=== PATIENT | female | born 1935 | race Asian ===

== ENCOUNTER 2018-09-22 20:55 | Inpatient (IN) | payer MEDICARE, OTHER ==
[~2018-09-22] VITALS: Ht 147.3 cm; Wt 59.7 kg
[~2018-09-22 20:55] MED LIST: ASPI81TA87 PO; BP MED; CIPR-279 PO; [UNRECOGNIZED DRUG - REMARK]
[2018-09-22] MEDS ORDERED: AMLO-511 PO (21:08)
[2018-09-22 22:47] LABS: BASOPHILS % (AUTO) 1.5 % (0.0-2.0); EOSINOPHILS % (AUTO) 7.5 % (1.0-6.0); HEMATOCRIT 34.4 % (36-46); HEMOGLOBIN 11.1 g/dL (12.0-16.0); LYMPHOCYTES # (AUTO) 1.5 K/uL (1.0-4.8); LYMPHOCYTES % (AUTO) 25.2 % (22.0-44.0); MEAN CORPUSCULAR HEMOGLOBIN 23.9 pg (26.0-34.0); MEAN CORPUSCULAR HGB CONC 32.4 G/dL (31.0-37.0); MEAN CORPUSCULAR VOLUME 74 fL (80-100); MONOCYTES % (AUTO) 16.5 % (2.0-9.0); NEUTROPHILS # (AUTO) 2.9 K/uL (1.8-7.7); NEUTROPHILS % (AUTO) 49.3 % (40.0-70.0); PLATELET COUNT (AUTO) 168 K/uL (150-450); RED BLOOD CELL COUNT(AUTO) 4.66 MIL/uL (4.00-5.20); RED CELL DISTRIBUTION WIDTH 15.9 % (11.5-14.5)
[2018-09-22 22:57] LABS: ANION GAP 4 mmol/L (8-16); CARBON DIOXIDE 29 mmol/L (22-29); CHLORIDE 106 mmol/L (98-107); CREATININE 0.72 mg/dL (0.60-1.30); GLUCOSE,RANDOM 116 mg/dL (70-110); POTASSIUM 3.5 mmol/L (3.5-5.1); SODIUM SERUM 139 mmol/L (136-145); UREA NITROGEN, BLOOD 10 mg/dL (7-18)
[2018-09-22 23:00] LABS: INR 1.1 (0.9-1.1); PROTHROMBIN TIME 11.6 SEC (9.4-11.6)
[2018-09-22 23:01] LABS: GLOMERULAR FILTR. RATE CALC > 60 mL/min (>60)
[2018-09-22 23:02] LABS: ALANINE AMINOTRANSFERASE 35 U/L (12-78); ALBUMIN 2.5 g/dL (3.4-5.0); ALKALINE PHOSPHATASE 121 U/L (46-116); ASPARTATE AMINOTRANSFERASE 51 U/L (15-37); TOTAL PROTEIN, SERUM 7.4 g/dL (6.4-8.2)
[2018-09-22] MEDS ORDERED: HYDROCODONE/ACETAMINOPHEN 5-325 MG TABLET PO PRN (23:45)
[2018-09-22] MEDS ORDERED: MORPHINE SULFATE 4 MG/ML SYRINGE IVP PRN (23:45)
[2018-09-22] MEDS ORDERED: SODIUM CHLORIDE 0.9% 1,000 ML IV ONE (23:45)
[2018-09-22] MEDS ORDERED: ACETAMINOPHEN 325 MG TABLET PO PRN (23:45)
[2018-09-22] MEDS ORDERED: MAGNESIUM HYDROXIDE SUSPENSION 30 ML UDCUP PO PRN (23:45)
[2018-09-22] MEDS ORDERED: ONDANSETRON HCL 4 MG/2 ML VIAL IVP PRN (23:45)
[2018-09-22] MEDS ORDERED: ZOLPIDEM TARTRATE 5 MG TABLET PO PRN (23:45)
[2018-09-22] MEDS ORDERED: BISACODYL 10 MG RECTAL RECTAL SUPPOSITORY PR PRN (23:45)
[2018-09-22] MEDS ORDERED: IPRATROPIUM BROMIDE 0.5 MG/2.5 ML NEB SOLUTION NEB PRN (23:45)
[2018-09-22] MEDS ORDERED: ALBUTEROL SULFATE 2.5 MG/0.5 ML NEB SOLUTION NEB PRN (23:45)
[2018-09-23 00:16] VITALS: BP 141/57
[2018-09-23 04:00] VITALS: BP 138/64
[2018-09-23 07:25] VITALS: BP 126/67
[2018-09-23] MEDS: HEPARIN SODIUM,PORCINE 5,000 UNITS/ML VIAL SQ SCH ×2 (08:00)
[2018-09-23] MEDS: DOCUSATE SODIUM 100 MG CAPSULE PO SCH ×2 (08:36→20:43)
[2018-09-23] MEDS: AmLODIPine BESYLATE 5 MG TABLET PO SCH (08:36)
[2018-09-23] MEDS: PANTOPRAZOLE SODIUM 40 MG/VIAL IVP SCH (08:36)
[2018-09-23] MEDS ORDERED: BUPIVACAINE HCL/PF 0.5% 10 ML VIAL ONE ×2 (09:55→09:56)
[2018-09-23] MEDS ORDERED: RINGERS SOLUTION,LACTATED 1,000 ML IV ONE ×3 (09:56→11:30)
[2018-09-23] MEDS ORDERED: MUPIROCIN CALCIUM 2% 22 GM OINTMENT ONE (09:56)
[2018-09-23] MEDS ORDERED: GUM MASTIC/STORAX/MSAL/ALCOHOL LIQUID 0.67 ML VIAL TP ONE (09:56)
[2018-09-23] MEDS ORDERED: ACETAMINOPHEN 1000 MG/ISO-OSM 100 ML IV ONE ×2 (11:47→12:00)
[2018-09-23] MEDS ORDERED: HYDROmorphone 2 MG/ML SYRINGE IVP PRN (12:15)
[2018-09-23] MEDS ORDERED: MEPERIDINE-PF 25 MG/ML VIAL IVP PRN (12:15)
[2018-09-23] MEDS ORDERED: MORPHINE SULFATE 2 MG/ML SYRINGE IVP PRN (12:15)
[2018-09-23] MEDS ORDERED: FentaNYL CITRATE-PF 100 MCG/2 ML VIAL IVP PRN (12:15)
[2018-09-23] MEDS ORDERED: BUPIVACAINE LIPOSOME/PF 1.3%-13.3MG/ML SUSPENSION 10 ML VIAL INJ ONE (12:15)
[2018-09-23] MEDS ORDERED: VANCOMYCIN HCL 1 GM/VIAL ONE (12:47)
[2018-09-23 14:36] VITALS: BP 128/63
[2018-09-23] MEDS ORDERED: SODIUM CHLORIDE 0.9% 500 ML IV ONE (15:52)
[2018-09-23] MEDS: ACETAMINOPHEN 1000 MG/ISO-OSM 100 ML IV SCH ×2 (17:18→23:03)
[2018-09-23] MEDS: CeFAZolin 1 GM/DEXTROSE 50 ML IV SCH ×2 (17:20→23:04)
[2018-09-23 20:12] VITALS: BP 130/69
[2018-09-23 23:16] VITALS: BP 132/61
[2018-09-24 04:39] VITALS: BP 149/69
[2018-09-24] MEDS ORDERED: 0.9% SODIUM CHLORIDE 10 ML VIAL IVP ONE (06:01)
[2018-09-24] MEDS ORDERED: MORPHINE SULFATE/PF 0.5 MG/ML 10 ML AMP IVP ONE (06:01)
[2018-09-24] MEDS ORDERED: FentaNYL CITRATE-PF 100 MCG/2 ML VIAL IVP ONE (06:01)
[2018-09-24] MEDS ORDERED: SUCCINYLCHOLINE CHLORIDE 20 MG/ML 10 ML VIAL IVP ONE (06:01)
[2018-09-24] MEDS ORDERED: PROPOFOL 1% 20 ML VIAL IVP ONE (06:01)
[2018-09-24] MEDS ORDERED: EPHEDrine SULFATE 50 MG/ML VIAL IM ONE (06:01)
[2018-09-24] MEDS: OxyCODONE HCL/ACETAMINOPHEN 5-325 MG TABLET PO PRN (06:10)
[2018-09-24 07:07] VITALS: BP 151/73
[2018-09-24] MEDS: OXYGEN THERAPY IH SCH ×2 (07:20→20:00)
[2018-09-24] MEDS: ENOXAPARIN SODIUM 30 MG/0.3 ML PF SYRINGE SQ SCH ×2 (08:19→20:28)
[2018-09-24] MEDS: AmLODIPine BESYLATE 5 MG TABLET PO SCH (08:19)
[2018-09-24] MEDS: PANTOPRAZOLE SODIUM 40 MG/VIAL IVP SCH (08:19)
[2018-09-24] MEDS: DOCUSATE SODIUM 100 MG CAPSULE PO SCH ×2 (08:19→20:28)
[2018-09-24 11:34] VITALS: BP 150/66
[2018-09-24 16:00] VITALS: BP 144/75
[2018-09-24 17:02] LABS: BASOPHILS % (AUTO) 1.2 % (0.0-2.0); HEMATOCRIT 32.5 % (36-46); HEMOGLOBIN 10.6 g/dL (12.0-16.0); LYMPHOCYTES # (AUTO) 1.5 K/uL (1.0-4.8); LYMPHOCYTES % (AUTO) 21.6 % (22.0-44.0); MEAN CORPUSCULAR HEMOGLOBIN 23.9 pg (26.0-34.0); MEAN CORPUSCULAR HGB CONC 32.6 G/dL (31.0-37.0); MEAN CORPUSCULAR VOLUME 73 fL (80-100); MONOCYTES # (AUTO) 1.1 K/uL (0.1-1.0); MONOCYTES % (AUTO) 16.2 % (2.0-9.0); NEUTROPHILS # (AUTO) 4.1 K/uL (1.8-7.7); PLATELET COUNT (AUTO) 163 K/uL (150-450); RED BLOOD CELL COUNT(AUTO) 4.44 MIL/uL (4.00-5.20); RED CELL DISTRIBUTION WIDTH 15.5 % (11.5-14.5)
[2018-09-24 17:19] LABS: ALANINE AMINOTRANSFERASE 32 U/L (12-78); ALBUMIN 2.2 g/dL (3.4-5.0); ALKALINE PHOSPHATASE 109 U/L (46-116); ANION GAP 4 mmol/L (8-16); ASPARTATE AMINOTRANSFERASE 40 U/L (15-37); BILIRUBIN,TOTAL 1.1 mg/dL (0.1-1.0); CALCIUM, TOTAL 8.1 mg/dL (8.8-10.5); CARBON DIOXIDE 26 mmol/L (22-29); CHLORIDE 107 mmol/L (98-107); CREATININE 0.75 mg/dL (0.60-1.30); GLUCOSE,RANDOM 114 mg/dL (70-110); POTASSIUM 3.9 mmol/L (3.5-5.1); SODIUM SERUM 137 mmol/L (136-145); UREA NITROGEN, BLOOD 11 mg/dL (7-18)
[2018-09-24 17:21] LABS: GLOMERULAR FILTR. RATE CALC > 60 mL/min (>60)
[2018-09-24 20:26] VITALS: BP 114/53
[2018-09-25] VITALS (7 sets, daily range): BP systolic 119–150; BP diastolic 58–79
[2018-09-25] MEDS: OxyCODONE HCL/ACETAMINOPHEN 5-325 MG TABLET PO PRN ×2 (02:26→06:34)
[2018-09-25] MEDS: OXYGEN THERAPY IH SCH ×2 (08:00→21:52)
[2018-09-25] MEDS: DOCUSATE SODIUM 100 MG CAPSULE PO SCH ×2 (08:20→21:45)
[2018-09-25] MEDS: AmLODIPine BESYLATE 5 MG TABLET PO SCH (08:20)
[2018-09-25] MEDS: ENOXAPARIN SODIUM 30 MG/0.3 ML PF SYRINGE SQ SCH ×2 (08:20→21:46)
[2018-09-25] MEDS: PANTOPRAZOLE SODIUM 40 MG/VIAL IVP SCH (08:20)
[2018-09-25] MEDS ORDERED: APIX2.5T PO (17:25)
[2018-10-18] MEDS ORDERED: ASPI-556 PO (10:56)
== END 2018-09-26 00:11 | disposition home health service (06) | DRG 492 ==
LOC: EMS 20:57 → 6N 23:13
PROVIDERS: ADMIT Hospitalist; ATTEND Hospitalist
PROC: 0QSG04Z Reposition Right Tibia with Internal Fixation Device, Open Approach (ICD-10-PCS; 2018-09-23)
PROC: 0QSJ04Z Reposition Right Fibula with Internal Fixation Device, Open Approach (ICD-10-PCS; principal; 2018-09-23 12:00)
DX: S82.851A Displaced trimalleolar fracture of right lower leg, initial encounter for closed fracture (principal); E43 Unspecified severe protein-calorie malnutrition; M25.00 Hemarthrosis, unspecified joint; I10 Essential (primary) hypertension; S93.03XA Subluxation of unspecified ankle joint, initial encounter; E78.00 Pure hypercholesterolemia, unspecified; M81.0 Age-related osteoporosis without current pathological fracture; W01.0XXA Fall on same level from slipping, tripping and stumbling without subsequent striking against object, initial encounter; X50.1XXA Overexertion from prolonged static or awkward postures, initial encounter; Y93.01 Activity, walking, marching and hiking; Z79.82 Long term (current) use of aspirin; Z79.899 Other long term (current) drug therapy; Y92.89 Other specified places as the place of occurrence of the external cause; Y99.8 Other external cause status; Z68.27 Body mass index [BMI] 27.0-27.9, adult
CPT/HCPCS: 29505; 29515; 51702; 87081; 93005; 97110; 97163; 97166; 97530; 97535; C1713; C9113; G0378; J0131; J0330; J0690; J1644; J1650; J2274; J2704; J3010; J3370; J3490; J7030; J7040; J7120

== ENCOUNTER 2019-12-30 19:05 | Inpatient (IN) | payer MEDICARE, OTHER ==
[~2019-12-30] VITALS: Ht 152.4 cm; Wt 52.9 kg
[~2019-12-30 19:05] MED LIST changes: +ASPI-556 PO; -ASPI81TA87 PO; -BP MED; -CIPR-279 PO; -[UNRECOGNIZED DRUG - REMARK]
[2019-12-30] MEDS ORDERED: FURO20TA4 PO (19:25)
[2019-12-30] MEDS ORDERED: METO25 PO (19:25)
[2019-12-30] MEDS ORDERED: BENA10TA76 PO (19:25)
[2019-12-30] MEDS ORDERED: ALBU8HFA IH (19:25)
[2019-12-30 20:52] LABS: BASOPHILS % (AUTO) 0.7 % (0.0-2.0); EOSINOPHILS % (AUTO) 5.4 % (1.0-6.0); HEMATOCRIT 35.1 % (36-46); HEMOGLOBIN 11.4 g/dL (12.0-16.0); LYMPHOCYTES # (AUTO) 2.4 K/uL (1.0-4.8); LYMPHOCYTES % (AUTO) 47.8 % (22.0-44.0); MEAN CORPUSCULAR HEMOGLOBIN 24.4 pg (26.0-34.0); MEAN CORPUSCULAR HGB CONC 32.4 G/dL (31.0-37.0); MEAN CORPUSCULAR VOLUME 75 fL (80-100); MONOCYTES # (AUTO) 0.6 K/uL (0.1-1.0); MONOCYTES % (AUTO) 11.7 % (2.0-9.0); NEUTROPHILS # (AUTO) 1.7 K/uL (1.8-7.7); NEUTROPHILS % (AUTO) 34.4 % (40.0-70.0); RED BLOOD CELL COUNT(AUTO) 4.67 MIL/uL (4.00-5.20); RED CELL DISTRIBUTION WIDTH 18.2 % (11.5-14.5)
[2019-12-30 21:01] LABS: INR 1.3 (0.9-1.1); PROTHROMBIN TIME 12.7 SEC (9.4-11.6)
[2019-12-30 21:03] LABS: ANION GAP 8 mmol/L (8-16); CALCIUM, TOTAL 8.1 mg/dL (8.8-10.5); CARBON DIOXIDE 28 mmol/L (22-29); CHLORIDE 105 mmol/L (98-107); GLUCOSE,RANDOM 105 mg/dL (70-110); POTASSIUM 3.1 mmol/L (3.5-5.1); SODIUM SERUM 141 mmol/L (136-145); UREA NITROGEN, BLOOD 10 mg/dL (7-18)
[2019-12-30 21:04] LABS: GLOMERULAR FILTR. RATE CALC > 60 mL/min (>60)
[2019-12-30 21:12] LABS: PLATELET COUNT (AUTO) 117 K/uL (150-450)
[2019-12-30 21:13] LABS: PLATELET MORPHOLOGY COMMENT LARGE PLTS PRESENT
[2019-12-30 21:25] LABS: ALANINE AMINOTRANSFERASE 23 U/L (12-78); ALBUMIN 2.1 g/dL (3.4-5.0); ALKALINE PHOSPHATASE 160 U/L (46-116); ASPARTATE AMINOTRANSFERASE 38 U/L (15-37); BILIRUBIN,TOTAL 1.2 mg/dL (0.1-1.0); CREATINE KINASE, TOTAL ONLY 86 U/L (26-192); TOTAL PROTEIN, SERUM 6.9 g/dL (6.4-8.2)
[2019-12-30] MEDS ORDERED: POTASSIUM CHLORIDE 10% 40 MEQ/30 ML LIQUID UDCUP PO ONE (23:30)
[2019-12-30] MEDS ORDERED: ONDANSETRON HCL 4 MG/2 ML VIAL IVP PRN (23:30)
[2019-12-30] MEDS ORDERED: 0.9% SODIUM CHLORIDE 10 ML SYRINGE IVP PRN (23:30)
[2019-12-30] MEDS ORDERED: ACETAMINOPHEN 325 MG TABLET PO PRN (23:30)
[2019-12-30] MEDS ORDERED: VANCOMYCIN HCL 1 GM/D5% WATER 200 ML IV ONE (23:30)
[2019-12-30] MEDS ORDERED: LINEZOLID 600 MG/ISO-OSM 300 ML IV ONE (23:45)
[2019-12-31 01:18] LABS: APPEARANCE,URINE CLOUDY (CLEAR); BILIRUBIN,URINE NEGATIVE (NEGATIVE); GLUCOSE, URINE (UA) NEGATIVE (NEGATIVE); KETONES,URINE NEGATIVE (NEGATIVE); LEUKOCYTE ESTERASE ,URINE LARGE (NEGATIVE); NITRATE,URINE NEGATIVE (NEGATIVE); OCCULT BLOOD,URINE SMALL (NEGATIVE); PROTEIN,URINE NEGATIVE (NEGATIVE)
[2019-12-31 01:28] LABS: BACTERIA,URINE Moderate /HPF (None Seen); SQUAMOUS EPITHELIAL CELL,UR Rare /LPF (None Seen); WBC,URINE >100 /HPF (0-5)
[2019-12-31] MEDS ORDERED: IPRATROPIUM BROMIDE 0.5 MG/2.5 ML NEB SOLUTION NEB PRN (02:00)
[2019-12-31] MEDS ORDERED: POTASSIUM CHLORIDE 20 MEQ ER TABLET PO PRN (02:00)
[2019-12-31] MEDS ORDERED: BISACODYL 10 MG RECTAL RECTAL SUPPOSITORY PR PRN (02:00)
[2019-12-31] MEDS ORDERED: ZOLPIDEM TARTRATE 5 MG TABLET PO PRN (02:00)
[2019-12-31] MEDS ORDERED: MAGNESIUM SULFATE 2 GM/WATER 50 ML IV PRN (02:00)
[2019-12-31] MEDS ORDERED: HYDROCODONE/ACETAMINOPHEN 5-325 MG TABLET PO PRN (02:00)
[2019-12-31] MEDS ORDERED: MORPHINE SULFATE 2 MG/ML SYRINGE IVP PRN (02:00)
[2019-12-31] MEDS ORDERED: MAGNESIUM HYDROXIDE SUSPENSION 30 ML UDCUP PO PRN (02:00)
[2019-12-31] MEDS ORDERED: MAGNESIUM OXIDE 400 MG TABLET PO PRN (02:00)
[2019-12-31] MEDS ORDERED: ONDANSETRON HCL 4 MG/2 ML VIAL IVP PRN (02:00)
[2019-12-31] MEDS ORDERED: ALBUTEROL SULFATE 2.5 MG/0.5 ML NEB SOLUTION NEB PRN (02:00)
[2019-12-31] MEDS ORDERED: MAGNESIUM SULFATE 4 GM/WATER 100 ML IV PRN (02:00)
[2019-12-31] MEDS ORDERED: POTASSIUM CHL 10 MEQ/WATER 50 ML IV PRN (02:00)
[2019-12-31 03:14] VITALS: BP 145/79
[2019-12-31 07:40] VITALS: BP 127/69
[2019-12-31] MEDS: ASPIRIN 81 MG EC TABLET PO SCH (08:02)
[2019-12-31] MEDS: HEPARIN SODIUM,PORCINE 5,000 UNITS/ML VIAL SQ SCH ×2 (08:02→15:09)
[2019-12-31] MEDS: DOCUSATE SODIUM 100 MG CAPSULE PO SCH ×2 (08:02→21:21)
[2019-12-31] MEDS: METOPROLOL TARTRATE 25 MG TABLET PO SCH (08:02)
[2019-12-31] MEDS: FUROSEMIDE 20 MG TABLET PO SCH (08:02)
[2019-12-31] MEDS: BENAZEPRIL HCL 10 MG TABLET PO SCH (08:02)
[2019-12-31] MEDS: FAMOTIDINE 20 MG TABLET PO SCH (08:02)
[2019-12-31 08:05] LABS: ALBUMIN 1.8 g/dL (3.4-5.0); POTASSIUM 3.8 mmol/L (3.5-5.1)
[2019-12-31 11:34] VITALS: BP 137/53
[2019-12-31] MEDS: LINEZOLID 600 MG/ISO-OSM 300 ML IV SCH (12:08)
[2019-12-31 15:21] VITALS: BP 133/55
[2019-12-31 19:53] VITALS: BP 140/75
[2019-12-31 23:51] VITALS: BP 140/61
[2020-01-01] MEDS: HEPARIN SODIUM,PORCINE 5,000 UNITS/ML VIAL SQ SCH ×4 (00:04→23:53)
[2020-01-01] MEDS: LINEZOLID 600 MG/ISO-OSM 300 ML IV SCH ×2 (00:04→17:29)
[2020-01-01] MEDS ORDERED: SODIUM CHLORIDE 0.9% 500 ML IV ONE (00:10)
[2020-01-01 04:35] VITALS: BP 139/63
[2020-01-01 07:19] LABS: BASOPHILS % (AUTO) 1.3 % (0.0-2.0); EOSINOPHILS % (AUTO) 7.3 % (1.0-6.0); HEMATOCRIT 34.9 % (36-46); HEMOGLOBIN 11.4 g/dL (12.0-16.0); LYMPHOCYTES # (AUTO) 1.8 K/uL (1.0-4.8); LYMPHOCYTES % (AUTO) 42.5 % (22.0-44.0); MEAN CORPUSCULAR HEMOGLOBIN 24.6 pg (26.0-34.0); MEAN CORPUSCULAR HGB CONC 32.7 G/dL (31.0-37.0); MEAN CORPUSCULAR VOLUME 75 fL (80-100); MONOCYTES # (AUTO) 0.5 K/uL (0.1-1.0); MONOCYTES % (AUTO) 12.9 % (2.0-9.0); NEUTROPHILS # (AUTO) 1.5 K/uL (1.8-7.7); PLATELET COUNT (AUTO) 118 K/uL (150-450); RED BLOOD CELL COUNT(AUTO) 4.62 MIL/uL (4.00-5.20); RED CELL DISTRIBUTION WIDTH 18.1 % (11.5-14.5)
[2020-01-01 07:56] LABS: ALANINE AMINOTRANSFERASE 22 U/L (12-78); ALKALINE PHOSPHATASE 103 U/L (46-116); ANION GAP 5 mmol/L (8-16); ASPARTATE AMINOTRANSFERASE 35 U/L (15-37); BILIRUBIN,TOTAL 1.5 mg/dL (0.1-1.0); CALCIUM, TOTAL 7.9 mg/dL (8.8-10.5); CARBON DIOXIDE 29 mmol/L (22-29); CHLORIDE 108 mmol/L (98-107); GLOMERULAR FILTR. RATE CALC 59 mL/min (>60); GLUCOSE,RANDOM 82 mg/dL (70-110); SODIUM SERUM 142 mmol/L (136-145); TOTAL PROTEIN, SERUM 6.5 g/dL (6.4-8.2); UREA NITROGEN, BLOOD 6 mg/dL (7-18)
[2020-01-01 08:13] VITALS: BP 108/60
[2020-01-01] MEDS: ASPIRIN 81 MG EC TABLET PO SCH (09:45)
[2020-01-01] MEDS: DOCUSATE SODIUM 100 MG CAPSULE PO SCH ×2 (09:45→20:29)
[2020-01-01] MEDS: METOPROLOL TARTRATE 25 MG TABLET PO SCH (09:45)
[2020-01-01] MEDS: BENAZEPRIL HCL 10 MG TABLET PO SCH (09:45)
[2020-01-01] MEDS: FUROSEMIDE 20 MG TABLET PO SCH (09:45)
[2020-01-01] MEDS: FAMOTIDINE 20 MG TABLET PO SCH (09:45)
[2020-01-01 11:49] VITALS: BP 145/69
[2020-01-01 15:20] VITALS: BP 146/64
[2020-01-01 20:02] VITALS: BP 121/62
[2020-01-01 23:45] VITALS: BP 130/59
[2020-01-02 04:36] VITALS: BP 126/66
[2020-01-02] MEDS: LINEZOLID 600 MG/ISO-OSM 300 ML IV SCH (04:58)
[2020-01-02 07:42] LABS: BASOPHILS % (AUTO) 1.1 % (0.0-2.0); EOSINOPHILS % (AUTO) 7.8 % (1.0-6.0); HEMATOCRIT 34.4 % (36-46); HEMOGLOBIN 11.1 g/dL (12.0-16.0); LYMPHOCYTES # (AUTO) 1.8 K/uL (1.0-4.8); MEAN CORPUSCULAR HEMOGLOBIN 24.3 pg (26.0-34.0); MEAN CORPUSCULAR HGB CONC 32.4 G/dL (31.0-37.0); MEAN CORPUSCULAR VOLUME 75 fL (80-100); MONOCYTES # (AUTO) 0.7 K/uL (0.1-1.0); MONOCYTES % (AUTO) 16.4 % (2.0-9.0); NEUTROPHILS # (AUTO) 1.3 K/uL (1.8-7.7); NEUTROPHILS % (AUTO) 31.7 % (40.0-70.0); PLATELET COUNT (AUTO) 118 K/uL (150-450); RED BLOOD CELL COUNT(AUTO) 4.59 MIL/uL (4.00-5.20); RED CELL DISTRIBUTION WIDTH 17.9 % (11.5-14.5)
[2020-01-02 08:06] LABS: ANION GAP 5 mmol/L (8-16); CALCIUM, TOTAL 7.8 mg/dL (8.8-10.5); CARBON DIOXIDE 28 mmol/L (22-29); CHLORIDE 109 mmol/L (98-107); CREATININE 0.85 mg/dL (0.60-1.30); GLOMERULAR FILTR. RATE CALC > 60 mL/min (>60); GLUCOSE,RANDOM 91 mg/dL (70-110); POTASSIUM 4.2 mmol/L (3.5-5.1); SODIUM SERUM 142 mmol/L (136-145); UREA NITROGEN, BLOOD 7 mg/dL (7-18)
[2020-01-02 08:56] VITALS: BP 153/77
[2020-01-02] MEDS: HEPARIN SODIUM,PORCINE 5,000 UNITS/ML VIAL SQ SCH ×2 (09:30→16:00)
[2020-01-02] MEDS: FUROSEMIDE 20 MG TABLET PO SCH (09:30)
[2020-01-02] MEDS: BENAZEPRIL HCL 10 MG TABLET PO SCH (09:30)
[2020-01-02] MEDS: ASPIRIN 81 MG EC TABLET PO SCH (09:30)
[2020-01-02] MEDS: FAMOTIDINE 20 MG TABLET PO SCH (09:30)
[2020-01-02] MEDS: DOCUSATE SODIUM 100 MG CAPSULE PO SCH ×2 (09:31→21:00)
[2020-01-02] MEDS: METOPROLOL TARTRATE 25 MG TABLET PO SCH (09:31)
[2020-01-02 11:34] VITALS: BP 160/70
[2020-01-02 16:10] VITALS: BP 168/70
[2020-01-02] MEDS ORDERED: DAPTOMYCIN 300 MG in SODIUM CHLORIDE 0.9% 50 ML IV SCH (17:00)
[2020-01-02 18:06] LABS: GLUCOMETER DEV NAME(LOC) 6N.2; GLUCOSE,POINT OF CARE 78 MG/DL (70-110)
[2020-01-02 19:46] VITALS: BP 155/67
[2020-01-02 23:35] VITALS: BP 126/78
[2020-01-03] MEDS: HEPARIN SODIUM,PORCINE 5,000 UNITS/ML VIAL SQ SCH ×4 (00:11→23:25)
[2020-01-03 04:45] VITALS: BP 150/58
[2020-01-03 07:32] LABS: ANION GAP 7 mmol/L (8-16); CALCIUM, TOTAL 7.9 mg/dL (8.8-10.5); CARBON DIOXIDE 28 mmol/L (22-29); CHLORIDE 108 mmol/L (98-107); CREATININE 0.75 mg/dL (0.60-1.30); GLUCOSE,RANDOM 81 mg/dL (70-110); POTASSIUM 4.2 mmol/L (3.5-5.1); SODIUM SERUM 143 mmol/L (136-145); UREA NITROGEN, BLOOD 7 mg/dL (7-18)
[2020-01-03 07:38] LABS: GLOMERULAR FILTR. RATE CALC > 60 mL/min (>60)
[2020-01-03 07:39] VITALS: BP 127/70
[2020-01-03 07:39] LABS: BASOPHILS % (AUTO) 1.3 % (0.0-2.0); EOSINOPHILS % (AUTO) 6.9 % (1.0-6.0); HEMATOCRIT 35.6 % (36-46); HEMOGLOBIN 11.5 g/dL (12.0-16.0); LYMPHOCYTES # (AUTO) 1.8 K/uL (1.0-4.8); LYMPHOCYTES % (AUTO) 42.4 % (22.0-44.0); MEAN CORPUSCULAR HEMOGLOBIN 24.4 pg (26.0-34.0); MEAN CORPUSCULAR HGB CONC 32.4 G/dL (31.0-37.0); MEAN CORPUSCULAR VOLUME 75 fL (80-100); MONOCYTES # (AUTO) 0.5 K/uL (0.1-1.0); MONOCYTES % (AUTO) 12.7 % (2.0-9.0); NEUTROPHILS # (AUTO) 1.5 K/uL (1.8-7.7); NEUTROPHILS % (AUTO) 36.7 % (40.0-70.0); PLATELET COUNT (AUTO) 115 K/uL (150-450); RED BLOOD CELL COUNT(AUTO) 4.73 MIL/uL (4.00-5.20); RED CELL DISTRIBUTION WIDTH 17.9 % (11.5-14.5)
[2020-01-03] MEDS: FAMOTIDINE 20 MG TABLET PO SCH (09:33)
[2020-01-03] MEDS: DOCUSATE SODIUM 100 MG CAPSULE PO SCH ×2 (09:33→21:18)
[2020-01-03] MEDS: BENAZEPRIL HCL 10 MG TABLET PO SCH (09:33)
[2020-01-03] MEDS: ASPIRIN 81 MG EC TABLET PO SCH (09:33)
[2020-01-03] MEDS: FUROSEMIDE 20 MG TABLET PO SCH (09:33)
[2020-01-03] MEDS: METOPROLOL TARTRATE 25 MG TABLET PO SCH (09:36)
[2020-01-03 11:39] VITALS: BP 132/55
[2020-01-03] MEDS: LINEZOLID 600 MG TABLET PO SCH ×2 (14:30→21:18)
[2020-01-03 15:54] VITALS: BP 138/49
[2020-01-03 19:55] VITALS: BP 137/55
[2020-01-03 23:47] VITALS: BP 135/49
[2020-01-04 05:40] VITALS: BP 141/67
[2020-01-04 07:35] LABS: BASOPHILS % (AUTO) 1.5 % (0.0-2.0); EOSINOPHILS % (AUTO) 7.2 % (1.0-6.0); HEMATOCRIT 35.2 % (36-46); HEMOGLOBIN 11.3 g/dL (12.0-16.0); LYMPHOCYTES # (AUTO) 1.7 K/uL (1.0-4.8); LYMPHOCYTES % (AUTO) 48.3 % (22.0-44.0); MEAN CORPUSCULAR HEMOGLOBIN 24.3 pg (26.0-34.0); MEAN CORPUSCULAR HGB CONC 32.2 G/dL (31.0-37.0); MEAN CORPUSCULAR VOLUME 76 fL (80-100); MONOCYTES # (AUTO) 0.6 K/uL (0.1-1.0); MONOCYTES % (AUTO) 16.1 % (2.0-9.0); NEUTROPHILS # (AUTO) 0.9 K/uL (1.8-7.7); NEUTROPHILS % (AUTO) 26.9 % (40.0-70.0); PLATELET COUNT (AUTO) 109 K/uL (150-450); RED BLOOD CELL COUNT(AUTO) 4.66 MIL/uL (4.00-5.20); RED CELL DISTRIBUTION WIDTH 17.5 % (11.5-14.5)
[2020-01-04 07:45] LABS: CALCIUM, TOTAL 8.1 mg/dL (8.8-10.5); CREATININE 0.9 mg/dL (0.60-1.30); POTASSIUM 4.3 mmol/L (3.5-5.1)
[2020-01-04 08:18] VITALS: BP 151/68
[2020-01-04] MEDS: HEPARIN SODIUM,PORCINE 5,000 UNITS/ML VIAL SQ SCH ×3 (08:26→23:44)
[2020-01-04] MEDS: ASPIRIN 81 MG EC TABLET PO SCH (08:26)
[2020-01-04] MEDS: BENAZEPRIL HCL 10 MG TABLET PO SCH (08:27)
[2020-01-04] MEDS: FUROSEMIDE 20 MG TABLET PO SCH (08:27)
[2020-01-04] MEDS: METOPROLOL TARTRATE 25 MG TABLET PO SCH (08:27)
[2020-01-04] MEDS: LINEZOLID 600 MG TABLET PO SCH (08:27)
[2020-01-04] MEDS: FAMOTIDINE 20 MG TABLET PO SCH (08:27)
[2020-01-04] MEDS: DOCUSATE SODIUM 100 MG CAPSULE PO SCH ×2 (08:31→21:38)
[2020-01-04 11:22] VITALS: BP 133/58
[2020-01-04 16:38] VITALS: BP 143/47
[2020-01-04] MEDS: AMPICILLIN SODIUM 1 GM/NS 50 ML IV SCH (18:07)
[2020-01-04 20:00] VITALS: BP 124/54
[2020-01-05] VITALS (7 sets, daily range): BP systolic 110–155; BP diastolic 52–61
[2020-01-05] MEDS: AMPICILLIN SODIUM 1 GM/NS 50 ML IV SCH ×3 (01:26→17:33)
[2020-01-05] MEDS: HEPARIN SODIUM,PORCINE 5,000 UNITS/ML VIAL SQ SCH ×2 (08:00→16:00)
[2020-01-05 08:04] LABS: BASOPHILS % (AUTO) 1.1 % (0.0-2.0); EOSINOPHILS % (AUTO) 7.6 % (1.0-6.0); HEMATOCRIT 35.4 % (36-46); HEMOGLOBIN 11.3 g/dL (12.0-16.0); LYMPHOCYTES # (AUTO) 1.7 K/uL (1.0-4.8); LYMPHOCYTES % (AUTO) 46.1 % (22.0-44.0); MEAN CORPUSCULAR HEMOGLOBIN 24.2 pg (26.0-34.0); MEAN CORPUSCULAR HGB CONC 31.9 G/dL (31.0-37.0); MEAN CORPUSCULAR VOLUME 76 fL (80-100); MONOCYTES # (AUTO) 0.5 K/uL (0.1-1.0); MONOCYTES % (AUTO) 13.8 % (2.0-9.0); NEUTROPHILS # (AUTO) 1.1 K/uL (1.8-7.7); NEUTROPHILS % (AUTO) 31.4 % (40.0-70.0); PLATELET COUNT (AUTO) 102 K/uL (150-450); RED BLOOD CELL COUNT(AUTO) 4.68 MIL/uL (4.00-5.20); RED CELL DISTRIBUTION WIDTH 17.5 % (11.5-14.5)
[2020-01-05 08:05] LABS: ANION GAP 3 mmol/L (8-16); CALCIUM, TOTAL 8.1 mg/dL (8.8-10.5); CARBON DIOXIDE 30 mmol/L (22-29); CHLORIDE 105 mmol/L (98-107); CREATININE 0.77 mg/dL (0.60-1.30); GLUCOSE,RANDOM 79 mg/dL (70-110); POTASSIUM 4.7 mmol/L (3.5-5.1); SODIUM SERUM 138 mmol/L (136-145); UREA NITROGEN, BLOOD 8 mg/dL (7-18)
[2020-01-05 08:07] LABS: GLOMERULAR FILTR. RATE CALC > 60 mL/min (>60)
[2020-01-05] MEDS: ASPIRIN 81 MG EC TABLET PO SCH (08:16)
[2020-01-05] MEDS: DOCUSATE SODIUM 100 MG CAPSULE PO SCH ×2 (08:16→21:10)
[2020-01-05] MEDS: FAMOTIDINE 20 MG TABLET PO SCH (08:16)
[2020-01-05] MEDS: METOPROLOL TARTRATE 25 MG TABLET PO SCH (08:17)
[2020-01-05] MEDS: BENAZEPRIL HCL 10 MG TABLET PO SCH (08:17)
[2020-01-05] MEDS: FUROSEMIDE 20 MG TABLET PO SCH (08:17)
[2020-01-06] MEDS: AMPICILLIN SODIUM 1 GM/NS 50 ML IV SCH ×3 (02:04→18:04)
[2020-01-06] MEDS: ACETAMINOPHEN 325 MG TABLET PO PRN (02:44)
[2020-01-06 04:00] VITALS: BP 149/59
[2020-01-06 06:55] LABS: BASOPHILS % (AUTO) 1.4 % (0.0-2.0); HEMATOCRIT 30.6 % (36-46); HEMOGLOBIN 9.9 g/dL (12.0-16.0); LYMPHOCYTES # (AUTO) 1.7 K/uL (1.0-4.8); LYMPHOCYTES % (AUTO) 48.1 % (22.0-44.0); MEAN CORPUSCULAR HEMOGLOBIN 24.1 pg (26.0-34.0); MEAN CORPUSCULAR HGB CONC 32.3 G/dL (31.0-37.0); MEAN CORPUSCULAR VOLUME 75 fL (80-100); MONOCYTES # (AUTO) 0.6 K/uL (0.1-1.0); MONOCYTES % (AUTO) 15.9 % (2.0-9.0); NEUTROPHILS % (AUTO) 27.6 % (40.0-70.0); PLATELET COUNT (AUTO) 87 K/uL (150-450); RED BLOOD CELL COUNT(AUTO) 4.11 MIL/uL (4.00-5.20); RED CELL DISTRIBUTION WIDTH 17.1 % (11.5-14.5)
[2020-01-06 07:16] LABS: ANION GAP 4 mmol/L (8-16); CALCIUM, TOTAL 7.6 mg/dL (8.8-10.5); CARBON DIOXIDE 28 mmol/L (22-29); CHLORIDE 106 mmol/L (98-107); CREATININE 0.65 mg/dL (0.60-1.30); GLUCOSE,RANDOM 88 mg/dL (70-110); PHOSPHORUS 2.8 mg/dL (2.5-4.9); POTASSIUM 3.9 mmol/L (3.5-5.1); SODIUM SERUM 138 mmol/L (136-145); UREA NITROGEN, BLOOD 9 mg/dL (7-18)
[2020-01-06 07:18] LABS: GLOMERULAR FILTR. RATE CALC > 60 mL/min (>60)
[2020-01-06 07:35] VITALS: BP 145/60
[2020-01-06] MEDS: HEPARIN SODIUM,PORCINE 5,000 UNITS/ML VIAL SQ SCH ×3 (08:00→16:00)
[2020-01-06] MEDS: BENAZEPRIL HCL 10 MG TABLET PO SCH (08:41)
[2020-01-06] MEDS: FAMOTIDINE 20 MG TABLET PO SCH (08:41)
[2020-01-06] MEDS: METOPROLOL TARTRATE 25 MG TABLET PO SCH (08:41)
[2020-01-06] MEDS: FUROSEMIDE 20 MG TABLET PO SCH (08:41)
[2020-01-06] MEDS: ASPIRIN 81 MG EC TABLET PO SCH (08:41)
[2020-01-06] MEDS: DOCUSATE SODIUM 100 MG CAPSULE PO SCH ×2 (08:41→21:00)
[2020-01-06 11:20] VITALS: BP 131/50
[2020-01-06 15:20] LABS: APPEARANCE,URINE CLOUDY (CLEAR); BILIRUBIN,URINE NEGATIVE (NEGATIVE); GLUCOSE, URINE (UA) NEGATIVE (NEGATIVE); KETONES,URINE NEGATIVE (NEGATIVE); LEUKOCYTE ESTERASE ,URINE MODERATE (NEGATIVE); NITRATE,URINE NEGATIVE (NEGATIVE); OCCULT BLOOD,URINE LARGE (NEGATIVE); PROTEIN,URINE NEGATIVE (NEGATIVE); UROBILINOGEN,URINE 0.2 mg/dL (<=1.0)
[2020-01-06 15:27] VITALS: BP 125/52
[2020-01-06 15:38] LABS: BACTERIA,URINE Many /HPF (None Seen)
[2020-01-06 15:40] LABS: SQUAMOUS EPITHELIAL CELL,UR Few /LPF (None Seen)
[2020-01-06 19:56] VITALS: BP 105/50
[2020-01-07] VITALS (7 sets, daily range): BP systolic 103–142; BP diastolic 49–70
[2020-01-07] MEDS: AMPICILLIN SODIUM 1 GM/NS 50 ML IV SCH ×3 (01:39→18:01)
[2020-01-07 07:46] LABS: BASOPHILS % (AUTO) 1.5 % (0.0-2.0); EOSINOPHILS % (AUTO) 6.7 % (1.0-6.0); HEMATOCRIT 27.6 % (36-46); HEMOGLOBIN 9.1 g/dL (12.0-16.0); LYMPHOCYTES # (AUTO) 1.7 K/uL (1.0-4.8); LYMPHOCYTES % (AUTO) 44.1 % (22.0-44.0); MEAN CORPUSCULAR HEMOGLOBIN 24.7 pg (26.0-34.0); MEAN CORPUSCULAR HGB CONC 32.8 G/dL (31.0-37.0); MEAN CORPUSCULAR VOLUME 75 fL (80-100); MONOCYTES # (AUTO) 0.6 K/uL (0.1-1.0); MONOCYTES % (AUTO) 16.1 % (2.0-9.0); NEUTROPHILS # (AUTO) 1.2 K/uL (1.8-7.7); NEUTROPHILS % (AUTO) 31.6 % (40.0-70.0); PLATELET COUNT (AUTO) 77 K/uL (150-450); RED BLOOD CELL COUNT(AUTO) 3.67 MIL/uL (4.00-5.20); RED CELL DISTRIBUTION WIDTH 16.9 % (11.5-14.5)
[2020-01-07] MEDS: HEPARIN SODIUM,PORCINE 5,000 UNITS/ML VIAL SQ SCH ×3 (08:00→16:00)
[2020-01-07 08:15] LABS: ALBUMIN 1.6 g/dL (3.4-5.0); CALCIUM, TOTAL 7.9 mg/dL (8.8-10.5); CREATININE 0.97 mg/dL (0.60-1.30); MAGNESIUM 2.1 mg/dL (1.80-2.40); POTASSIUM 4.4 mmol/L (3.5-5.1)
[2020-01-07] MEDS: BENAZEPRIL HCL 10 MG TABLET PO SCH (08:43)
[2020-01-07] MEDS: DOCUSATE SODIUM 100 MG CAPSULE PO SCH ×2 (08:43→21:01)
[2020-01-07] MEDS: METOPROLOL TARTRATE 25 MG TABLET PO SCH (08:43)
[2020-01-07] MEDS: FUROSEMIDE 20 MG TABLET PO SCH (08:43)
[2020-01-07] MEDS: FAMOTIDINE 20 MG TABLET PO SCH (08:43)
[2020-01-07] MEDS: ASPIRIN 81 MG EC TABLET PO SCH (08:43)
[2020-01-07] MEDS ORDERED: SODIUM CHLORIDE 0.9% 500 ML IV ONE (08:49)
[2020-01-08] MEDS: AMPICILLIN SODIUM 1 GM/NS 50 ML IV SCH ×2 (03:25→09:08)
[2020-01-08 05:20] VITALS: BP 141/62
[2020-01-08 07:23] VITALS: BP 140/65
[2020-01-08] MEDS: FUROSEMIDE 20 MG TABLET PO SCH (09:06)
[2020-01-08] MEDS: ASPIRIN 81 MG EC TABLET PO SCH (09:06)
[2020-01-08] MEDS: FAMOTIDINE 20 MG TABLET PO SCH (09:06)
[2020-01-08] MEDS: METOPROLOL TARTRATE 25 MG TABLET PO SCH (09:06)
[2020-01-08] MEDS: DOCUSATE SODIUM 100 MG CAPSULE PO SCH (09:06)
[2020-01-08] MEDS: BENAZEPRIL HCL 10 MG TABLET PO SCH (09:06)
[2020-01-08 11:28] VITALS: BP 119/54
[2020-01-08] MEDS: ACETAMINOPHEN 325 MG TABLET PO PRN (15:18)
[2020-01-08 15:25] VITALS: BP 132/55
== END 2020-01-08 18:10 | disposition home health service (06) | DRG 690 ==
LOC: EMS 19:09 → 6N 12-31 00:05
PROVIDERS: ADMIT Hospitalist; ATTEND Hospitalist
PROC: B54NZZA Ultrasonography of Left Upper Extremity Veins, Guidance (ICD-10-PCS; principal; 2019-12-31)
PROC: 05HY33Z Insertion of Infusion Device into Upper Vein, Percutaneous Approach (ICD-10-PCS; 2019-12-31)
DX: N39.0 Urinary tract infection, site not specified (principal); E44.0 Moderate protein-calorie malnutrition; Z16.21 Resistance to vancomycin; D61.818 Other pancytopenia; D69.6 Thrombocytopenia, unspecified; E87.6 Hypokalemia; B95.2 Enterococcus as the cause of diseases classified elsewhere; E78.00 Pure hypercholesterolemia, unspecified; I11.0 Hypertensive heart disease with heart failure; F03.90 Unspecified dementia, unspecified severity, without behavioral disturbance, psychotic disturbance, mood disturbance, and anxiety; I50.9 Heart failure, unspecified; I25.10 Atherosclerotic heart disease of native coronary artery without angina pectoris; K74.60 Unspecified cirrhosis of liver; Z68.22 Body mass index [BMI] 22.0-22.9, adult; Z98.890 Other specified postprocedural states; Z82.49 Family history of ischemic heart disease and other diseases of the circulatory system
CPT/HCPCS: 36245; 36569; 76937; 83735; 84100; 84132; 84145; 87086; 87205; 92610; 93005; 97162; 97530; J0290; J0878; J1644; J2020; J3370; J3475; J7040; J7050

== ENCOUNTER 2020-08-19 19:28 | Inpatient (IN) | payer MEDICARE, OTHER ==
[~2020-08-19] VITALS: Ht 152.4 cm; Wt 49.3 kg
[~2020-08-19 19:28] MED LIST changes: +ALBU8HFA IH; +BENA10TA76 PO; +FURO20TA4 PO; +METO25 PO
[2020-08-19 21:01] LABS: BASOPHILS % (AUTO) 1.2 % (0.0-2.0); EOSINOPHILS % (AUTO) 9.9 % (1.0-6.0); HEMATOCRIT 26.5 % (36-46); HEMOGLOBIN 8.5 g/dL (12.0-16.0); LYMPHOCYTES # (AUTO) 1.3 K/uL (1.0-4.8); LYMPHOCYTES % (AUTO) 23.2 % (22.0-44.0); MEAN CORPUSCULAR HEMOGLOBIN 24.2 pg (26.0-34.0); MEAN CORPUSCULAR VOLUME 76 fL (80-100); MONOCYTES # (AUTO) 0.8 K/uL (0.1-1.0); MONOCYTES % (AUTO) 13.8 % (2.0-9.0); NEUTROPHILS % (AUTO) 51.9 % (40.0-70.0); PLATELET COUNT (AUTO) 160 K/uL (150-450); RED BLOOD CELL COUNT(AUTO) 3.51 MIL/uL (4.00-5.20); RED CELL DISTRIBUTION WIDTH 16.6 % (11.5-14.5)
[2020-08-19 21:19] LABS: CALCIUM, TOTAL 8.3 mg/dL (8.8-10.5); CREATININE 1.03 mg/dL (0.60-1.30); POTASSIUM 4.4 mmol/L (3.5-5.1)
[2020-08-19 21:24] LABS: ALBUMIN 1.6 g/dL (3.4-5.0); BILIRUBIN,TOTAL 0.7 mg/dL (0.1-1.0)
[2020-08-19 21:45] LABS: LACTIC ACID 1.5 mmol/L (0.4-2.0)
[2020-08-19 22:35] LABS: COVID AG,FIA SOURCE NASOPHARYNGEAL
[2020-08-19] MEDS ORDERED: ACETAMINOPHEN 325 MG TABLET PO PRN (22:45)
[2020-08-19] MEDS ORDERED: 0.9% SODIUM CHLORIDE 10 ML SYRINGE IVP PRN (22:45)
[2020-08-19] MEDS ORDERED: ONDANSETRON HCL 4 MG/2 ML VIAL IVP PRN (22:45)
[2020-08-19] MEDS ORDERED: CefTRIAXone 1 GM/DEXTROSE 50 ML IV ONE (22:45)
[2020-08-19 23:14] LABS: APPEARANCE,URINE TURBID (CLEAR); BILIRUBIN,URINE NEGATIVE (NEGATIVE); GLUCOSE, URINE (UA) NEGATIVE (NEGATIVE); KETONES,URINE NEGATIVE (NEGATIVE); LEUKOCYTE ESTERASE ,URINE LARGE (NEGATIVE); NITRATE,URINE NEGATIVE (NEGATIVE); OCCULT BLOOD,URINE MODERATE (NEGATIVE); PH,URINE 6.5 (5.0-8.0); PROTEIN,URINE TRACE (NEGATIVE)
[2020-08-19] MEDS ORDERED: VANCOMYCIN HCL 1 GM/D5% WATER 200 ML IV ONE (23:15)
[2020-08-19 23:20] LABS: BACTERIA,URINE Many /HPF (None Seen); SQUAMOUS EPITHELIAL CELL,UR Moderate /LPF (None Seen); WBC,URINE Full Field /HPF (0-5)
[2020-08-20 01:10] VITALS: BP 145/65
[2020-08-20] MEDS ORDERED: INFLUENZA VIRUS VACCINE QVS 2020-21 (6MO+)/PF 60 MCG/0.5 ML SYRINGE IM ONE (02:15)
[2020-08-20] MEDS ORDERED: PNEUMOCOCCAL VACCINE POLYVALENT 0.5 ML VIAL [PPSV23] IM ONE (02:15)
[2020-08-20 05:45] VITALS: BP 135/70
[2020-08-20] MEDS ORDERED: CloNIDine HCL 0.1 MG TABLET PO PRN (06:45)
[2020-08-20] MEDS ORDERED: ACETAMINOPHEN 325 MG TABLET PO PRN (06:45)
[2020-08-20] MEDS: MULTIVITAMINS WITH MINERALS, THERAPEUTIC TABLET PO SCH (08:11)
[2020-08-20] MEDS: HEPARIN SODIUM,PORCINE 5,000 UNITS/ML VIAL SQ SCH ×2 (08:11→20:36)
[2020-08-20] MEDS: ASPIRIN 81 MG CHEWABLE TABLET PO SCH (08:11)
[2020-08-20] MEDS: FAMOTIDINE 20 MG TABLET PO SCH (08:11)
[2020-08-20] MEDS: DOCUSATE SODIUM 100 MG CAPSULE PO SCH ×2 (08:11→20:35)
[2020-08-20 08:33] VITALS: BP 159/75
[2020-08-20] MEDS: VANCOMYCIN HCL 750 MG in DEXTROSE 5%-WATER 250 ML IV SCH (08:51)
[2020-08-20] MEDS ORDERED: SODIUM CHLORIDE 0.9% 500 ML IV ONE (08:57)
[2020-08-20 16:01] VITALS: BP 140/53
[2020-08-20] MEDS ORDERED: ALBUTEROL SULFATE HFA 90 MCG/PUFF 8 GM INHALER IH PRN (16:30)
[2020-08-20 20:00] VITALS: BP 159/59
[2020-08-20] MEDS: CLOBETASOL 0.05% 60 GM OINTMENT TP SCH (20:36)
[2020-08-20] MEDS ORDERED: FUROSEMIDE 20 MG TABLET PO ONE (21:00)
[2020-08-20] MEDS: CefTRIAXone 1 GM/DEXTROSE 50 ML IV SCH (22:49)
[2020-08-21 04:57] VITALS: BP 151/67
[2020-08-21 06:53] LABS: CREATININE 0.89 mg/dL (0.60-1.30); POTASSIUM 4.1 mmol/L (3.5-5.1)
[2020-08-21 07:45] VITALS: BP 143/80
[2020-08-21] MEDS: VANCOMYCIN HCL 750 MG in DEXTROSE 5%-WATER 250 ML IV SCH (08:07)
[2020-08-21] MEDS: MULTIVITAMINS WITH MINERALS, THERAPEUTIC TABLET PO SCH (08:08)
[2020-08-21] MEDS: FUROSEMIDE 20 MG TABLET PO SCH (08:08)
[2020-08-21] MEDS: METOPROLOL TARTRATE 25 MG TABLET PO SCH (08:08)
[2020-08-21] MEDS: ASPIRIN 81 MG CHEWABLE TABLET PO SCH (08:08)
[2020-08-21] MEDS: PredniSONE 20 MG TABLET PO SCH (08:08)
[2020-08-21] MEDS: DOCUSATE SODIUM 100 MG CAPSULE PO SCH ×2 (08:08→20:17)
[2020-08-21] MEDS: BENAZEPRIL HCL 10 MG TABLET PO SCH (08:08)
[2020-08-21] MEDS: HEPARIN SODIUM,PORCINE 5,000 UNITS/ML VIAL SQ SCH ×2 (08:09→20:17)
[2020-08-21] MEDS ORDERED: SODIUM CHLORIDE 0.9% 500 ML IV ONE (08:20)
[2020-08-21] MEDS: FAMOTIDINE 20 MG TABLET PO SCH (08:29)
[2020-08-21] MEDS: CLOBETASOL 0.05% 60 GM OINTMENT TP SCH ×2 (12:14→20:17)
[2020-08-21] MEDS ORDERED: SODIUM CL IRRIG SOLN BOTTLE 250 ML IRRIG ONE (12:23)
[2020-08-21 12:45] VITALS: BP 141/78
[2020-08-21 16:30] VITALS: BP 142/66
[2020-08-21 19:15] VITALS: BP 148/65
[2020-08-21] MEDS: CefTRIAXone 1 GM/DEXTROSE 50 ML IV SCH (22:15)
[2020-08-21 23:11] VITALS: BP 148/56
[2020-08-22 04:38] VITALS: BP 155/77
[2020-08-22 07:21] VITALS: BP 147/59
[2020-08-22 07:30] LABS: ANION GAP 10 mmol/L (8-16); CALCIUM, TOTAL 8.1 mg/dL (8.8-10.5); CARBON DIOXIDE 23 mmol/L (22-29); CHLORIDE 105 mmol/L (98-107); CREATININE 0.85 mg/dL (0.60-1.30); GLOMERULAR FILTR. RATE CALC > 60 mL/min (>60); GLUCOSE,RANDOM 99 mg/dL (70-110); POTASSIUM 5.3 mmol/L (3.5-5.1); SODIUM SERUM 138 mmol/L (136-145); UREA NITROGEN, BLOOD 16 mg/dL (7-18); VANCOMYCIN,RANDOM 11.9 mcg/mL (25.0-50.0)
[2020-08-22] MEDS: HEPARIN SODIUM,PORCINE 5,000 UNITS/ML VIAL SQ SCH ×2 (08:14→20:49)
[2020-08-22] MEDS: VANCOMYCIN HCL 750 MG in DEXTROSE 5%-WATER 250 ML IV SCH (08:14)
[2020-08-22] MEDS: METOPROLOL TARTRATE 25 MG TABLET PO SCH (08:17)
[2020-08-22] MEDS: FUROSEMIDE 20 MG TABLET PO SCH (08:17)
[2020-08-22] MEDS: MULTIVITAMINS WITH MINERALS, THERAPEUTIC TABLET PO SCH (08:18)
[2020-08-22] MEDS: FAMOTIDINE 20 MG TABLET PO SCH (08:18)
[2020-08-22] MEDS: PredniSONE 20 MG TABLET PO SCH (08:18)
[2020-08-22] MEDS: ASPIRIN 81 MG CHEWABLE TABLET PO SCH (08:18)
[2020-08-22] MEDS: BENAZEPRIL HCL 10 MG TABLET PO SCH (08:18)
[2020-08-22] MEDS: DOCUSATE SODIUM 100 MG CAPSULE PO SCH ×2 (08:31→20:49)
[2020-08-22] MEDS ORDERED: SODIUM POLYSTYRENE SULFONATE 15 GM/60 ML SUSPENSION BOTTLE PO ONE (10:00)
[2020-08-22] MEDS: CLOBETASOL 0.05% 60 GM OINTMENT TP SCH ×2 (10:32→20:52)
[2020-08-22] MEDS ORDERED: CEFX2I IV (12:54)
[2020-08-22 17:18] VITALS: BP 142/68
[2020-08-22 19:20] VITALS: BP 145/68
[2020-08-22] MEDS: CefTRIAXone 1 GM/DEXTROSE 50 ML IV SCH (20:53)
[2020-08-22 23:45] VITALS: BP 133/61
[2020-08-23] VITALS (7 sets, daily range): BP systolic 125–148; BP diastolic 52–79
[2020-08-23] MEDS: VANCOMYCIN HCL 1 GM/D5% WATER 200 ML IV SCH (08:23)
[2020-08-23] MEDS: MULTIVITAMINS WITH MINERALS, THERAPEUTIC TABLET PO SCH (09:05)
[2020-08-23] MEDS: ASPIRIN 81 MG CHEWABLE TABLET PO SCH (09:06)
[2020-08-23] MEDS: PredniSONE 20 MG TABLET PO SCH (09:06)
[2020-08-23] MEDS: FAMOTIDINE 20 MG TABLET PO SCH (09:06)
[2020-08-23] MEDS: DOCUSATE SODIUM 100 MG CAPSULE PO SCH ×2 (09:06→20:24)
[2020-08-23] MEDS: CLOBETASOL 0.05% 60 GM OINTMENT TP SCH ×2 (09:09→20:29)
[2020-08-23] MEDS: HEPARIN SODIUM,PORCINE 5,000 UNITS/ML VIAL SQ SCH ×2 (09:09→20:29)
[2020-08-23] MEDS: FUROSEMIDE 20 MG TABLET PO SCH (09:28)
[2020-08-23] MEDS: METOPROLOL TARTRATE 25 MG TABLET PO SCH (09:29)
[2020-08-23] MEDS: BENAZEPRIL HCL 10 MG TABLET PO SCH (09:29)
[2020-08-23 10:04] LABS: CALCIUM, TOTAL 7.7 mg/dL (8.8-10.5); CREATININE 0.9 mg/dL (0.60-1.30)
[2020-08-23] MEDS ORDERED: ASPI-1111 PO (10:40)
[2020-08-23] MEDS ORDERED: SODIUM CHLORIDE 0.9% 500 ML IV ONE (10:45)
[2020-08-24 03:10] LABS: HIV 1-2 SCREEN 4TH GEN W/RFLX Non Reactive (Non Reactive)
[2020-08-24 04:57] VITALS: BP 138/70
[2020-08-24 06:41] LABS: CALCIUM, TOTAL 7.8 mg/dL (8.8-10.5); CREATININE 0.91 mg/dL (0.60-1.30); POTASSIUM 4.8 mmol/L (3.5-5.1)
[2020-08-24] MEDS: VANCOMYCIN HCL 1 GM/D5% WATER 200 ML IV SCH (08:09)
[2020-08-24] MEDS: BENAZEPRIL HCL 10 MG TABLET PO SCH (08:09)
[2020-08-24] MEDS: ASPIRIN 81 MG CHEWABLE TABLET PO SCH (08:09)
[2020-08-24] MEDS: FAMOTIDINE 20 MG TABLET PO SCH (08:10)
[2020-08-24] MEDS: MULTIVITAMINS WITH MINERALS, THERAPEUTIC TABLET PO SCH (08:10)
[2020-08-24] MEDS: HEPARIN SODIUM,PORCINE 5,000 UNITS/ML VIAL SQ SCH (08:10)
[2020-08-24] MEDS: PredniSONE 20 MG TABLET PO SCH (08:10)
[2020-08-24] MEDS: FUROSEMIDE 20 MG TABLET PO SCH (08:10)
[2020-08-24] MEDS: DOCUSATE SODIUM 100 MG CAPSULE PO SCH (08:10)
[2020-08-24 08:25] VITALS: BP 125/56
[2020-08-24] MEDS: CLOBETASOL 0.05% 60 GM OINTMENT TP SCH (08:48)
[2020-08-24] MEDS: METOPROLOL TARTRATE 25 MG TABLET PO SCH (08:48)
[2020-08-24 15:00] VITALS: BP 135/67
[2020-08-24] MEDS ORDERED: FAMO20 PO (16:51)
[2020-08-24] MEDS ORDERED: CLOB525T TP (16:51)
[2020-08-24] MEDS ORDERED: METO25 PO (16:52)
[2020-08-24] MEDS ORDERED: PRED20 PO (16:53)
[2020-08-24] MEDS ORDERED: DOXY-354 PO (16:56)
[2020-08-24] MEDS ORDERED: VANC1IV IV (16:56)
[2020-08-24 19:53] VITALS: BP 134/64
[2020-08-25 13:06] LABS: QUANTIFERON, TB GOLD PLUS Negative (Negative)
== END 2020-08-24 18:55 | DRG 595 ==
LOC: EMS 19:28 → 6N 23:00
PROVIDERS: ADMIT Internal Medicine; ATTEND Internal Medicine
PROC: 0HB5XZX Excision of Chest Skin, External Approach, Diagnostic (ICD-10-PCS; principal; 2020-08-21)
DX: L12.0 Bullous pemphigoid (principal); E43 Unspecified severe protein-calorie malnutrition; L03.90 Cellulitis, unspecified; N39.0 Urinary tract infection, site not specified; N17.9 Acute kidney failure, unspecified; D50.9 Iron deficiency anemia, unspecified; I25.10 Atherosclerotic heart disease of native coronary artery without angina pectoris; I11.0 Hypertensive heart disease with heart failure; K74.60 Unspecified cirrhosis of liver; R62.7 Adult failure to thrive; F03.90 Unspecified dementia, unspecified severity, without behavioral disturbance, psychotic disturbance, mood disturbance, and anxiety; E87.5 Hyperkalemia; Z68.21 Body mass index [BMI] 21.0-21.9, adult; Z79.899 Other long term (current) drug therapy; Z79.82 Long term (current) use of aspirin; Z82.49 Family history of ischemic heart disease and other diseases of the circulatory system; Z20.828 Contact with and (suspected) exposure to other viral communicable diseases
CPT/HCPCS: 80074; 83605; 86480; 87040; 87070; 87081; 87086; 87205; 87389; 87426; 97110; 97162; 97530; J0696; J1644; J2405; J3370; J7040; J7060